=== PATIENT | female | born 2000 | race Caucasian/White ===

== ENCOUNTER 2023-01-09 11:40 | Observation (INO) | payer MEDICAID ==
[~2023-01-09] VITALS: Ht 165.1 cm; Wt 97.5 kg
[2023-01-09] MEDS ORDERED: PNV91TAB8 PO (13:17)
== END 2023-01-09 13:39 | disposition home or self-care (01) ==
LOC: MLD 11:40
PROVIDERS: ADMIT Obstetrics & Gynecology; ATTEND Obstetrics & Gynecology
DX: O36.8130 Decreased fetal movements, third trimester, not applicable or unspecified (principal); Z3A.37 37 weeks gestation of pregnancy
CPT/HCPCS: 76815; G0378; Q0092; 59025; 81000

== ENCOUNTER 2023-01-22 10:15 | Inpatient (IN) | payer MEDICAID ==
[~2023-01-22] VITALS: Ht 170.2 cm; Wt 97.5 kg
[~2023-01-22 10:15] MED LIST: PNV91TAB8 PO
[2023-01-22] MEDS ORDERED: METHYLERGONOVINE 0.2 MG/ML AMP IM PRN (11:00)
--- NOTE | 2023-01-22 11:11 | NUR ---
PATIENT HAS BEEN SCREENED AND CATEGORIZED LOW NUTRITION RISK. PATIENT WILL BE SEEN WITHIN 7 DAYS OF ADMISSION. 01/29/[address]
[2023-01-22] MEDS: LACTATED RINGERS 1,000 ML IV SCH ×3 (11:52→19:48)
[2023-01-22 12:25] LABS: BASOPHILS % (AUTO) 0.2 % (0.0-2.0); EOSINOPHILS # (AUTO) 0.1 K/uL (0-0.4); EOSINOPHILS % (AUTO) 0.7 % (0.0-4.0); HEMOGLOBIN 11.6 g/dL (12.0-16.0); LYMPHOCYTES # (AUTO) 1.6 K/uL (2.5-16.5); LYMPHOCYTES % (AUTO) 16.5 % (20.5-51.1); MEAN CORPUSCULAR HEMOGLOBIN 30 pg (27-31); MEAN CORPUSCULAR HGB CONC 33 g/dL (33-37); MEAN CORPUSCULAR VOLUME 89.4 fL (80-94); MONOCYTES # (AUTO) 0.7 K/uL (0.8-1.0); MONOCYTES % (AUTO) 6.8 % (1.7-9.3); NEUTROPHILS # (AUTO) 7.3 K/uL (1.8-7.7); NEUTROPHILS % (AUTO) 75.8 % (42.2-75.2); PLATELET COUNT (AUTO) 182 K/uL (140-450); RED BLOOD CELL COUNT(AUTO) 3.92 MIL/uL (4.20-5.40); WHITE BLOOD COUNT (AUTO) 9.6 K/uL (4.8-10.8)
[2023-01-22 12:35] LABS: APPEARANCE,URINE CLEAR (CLEAR); BILIRUBIN,URINE NEGATIVE (NEGATIVE); BLOOD, URINE 3+ (NEGATIVE); COLOR,URINE YELLOW (YELLOW); LEUKOCYTE ESTERASE ,URINE TRACE (NEGATIVE); NITRITE, URINE NEGATIVE (NEGATIVE); UGLUCOSE NEGATIVE (NEGATIVE)
[2023-01-22 12:57] LABS: ALBUMIN 2.4 g/dL (3.4-5.0); ANION GAP 12.6 (8-16); CARBON DIOXIDE 23.6 mmol/L (21-32); CREATININE 0.5 mg/dL (0.6-1.3); POTASSIUM 4.2 mmol/L (3.5-5.1); TOTAL BILIRUBIN 0.2 mg/dL (0.0-1.0)
[2023-01-22 13:04] LABS: RBC,URINE 80-100 /HPF (0-5)
[2023-01-22 13:23] LABS: PROTHROMBIN TIME 9.3 secs (10.8-13.4)
[2023-01-22] MEDS ORDERED: OXYTOCIN 20 UNITS in LACTATED RINGERS 1,000 ML IV SCH (13:25)
[2023-01-22] MEDS ORDERED: fentaNYL citrate 0.05 MG/ML VIAL ONE (14:12)
[2023-01-22] MEDS ORDERED: ROPIVACAINE 0.2%/NS PREMIX 200 ML EPI ONE (14:12)
[2023-01-22] MEDS ORDERED: OXYTOCIN 20 UNITS/LR PREMIX 1,000 ML IV ONE (14:30)
[2023-01-23] MEDS: LACTATED RINGERS 1,000 ML IV SCH (03:26)
[2023-01-23] MEDS ORDERED: LIDOCAINE 1% 500 MG/ 50 ML VIAL INJ SCH (04:20)
[2023-01-23] MEDS ORDERED: LIDOCAINE 1% 500 MG/50 ML VIAL ONE (04:23)
[2023-01-23] MEDS ORDERED: METHYLERGONOVINE 0.2 MG TAB PO PRN (05:00)
[2023-01-23] MEDS ORDERED: BENZOCAINE/MENTHOL 20%-0.5% 60 GM CAN TP PRN (05:00)
[2023-01-23] MEDS ORDERED: oxyCODONE/APAP 5/325 MG 1 TAB TAB PO PRN (05:00)
[2023-01-23] MEDS ORDERED: TEMAZEPAM 15 MG CAP PO PRN (05:00)
[2023-01-23] MEDS ORDERED: OXYTOCIN 10 UNITS/ML VIAL IM PRN (05:00)
[2023-01-23] MEDS ORDERED: METHYLERGONOVINE 0.2 MG/ML AMP IM PRN (05:00)
[2023-01-23 05:29] LABS: BASOPHILS # (AUTO) 0.1 K/uL (0.00-0.22); BASOPHILS % (AUTO) 0.4 % (0.0-2.0); EOSINOPHILS % (AUTO) 0.1 % (0.0-4.0); HEMATOCRIT 29.2 % (36-48); HEMOGLOBIN 9.8 g/dL (12.0-16.0); LYMPHOCYTES # (AUTO) 1.6 K/uL (2.5-16.5); LYMPHOCYTES % (AUTO) 11.8 % (20.5-51.1); MEAN CORPUSCULAR HEMOGLOBIN 30 pg (27-31); MEAN CORPUSCULAR HGB CONC 34 g/dL (33-37); MEAN CORPUSCULAR VOLUME 88.9 fL (80-94); MONOCYTES # (AUTO) 0.6 K/uL (0.8-1.0); MONOCYTES % (AUTO) 4.7 % (1.7-9.3); NEUTROPHILS # (AUTO) 11.2 K/uL (1.8-7.7); PLATELET COUNT (AUTO) 165 K/uL (140-450); RED BLOOD CELL COUNT(AUTO) 3.29 MIL/uL (4.20-5.40); RED CELL DISTRIBUTION WIDTH 14.5 % (11.6-13.7); WHITE BLOOD COUNT (AUTO) 13.5 K/uL (4.8-10.8)
--- NOTE | 2023-01-23 05:38 | NUR ---
REPORTED FOR REQUEST OF SERVICE TO L&D FOR TERM BABY PRESENTING WITH GRUNTING. UPON ASSESSMENT THE NEW BORN BABY DID NOT PRESENT WITH SIGNS OF RESPIRATORY DISTRESS, NO LABORED BREATHING, NO RETRACTIONS NOTED, NO NASAL FLARING, SPO2 99% ON ROOM AIR, BS CLEAR BILATERALLY TO AUSCULTATION, ORAL SXN WITH BULB FOR CLEAR SCANT THIN SECRETIONS. RECOMMENDED RN TO ORDER CRX. NO NEED FOR RT INTERVENTION AT THIS TIME. RN WILL CONTINUE TO MONITOR NEW BORN BABY.
[2023-01-23] MEDS ORDERED: NACL 0.9% 1,000 ML IV SCH (07:00)
[2023-01-23] MEDS: IBUPROFEN 800 MG TAB PO PRN ×2 (08:26→18:43)
[2023-01-23] MEDS: oxyCODONE/APAP 5/325 MG 1 TAB TAB PO PRN (20:32)
[2023-01-23] MEDS ORDERED: DOCUSATE SOD/SENNA 50/8.6 MG 1 TAB PO SCH (21:00)
[2023-01-24] MEDS: oxyCODONE/APAP 5/325 MG 1 TAB TAB PO PRN ×3 (02:48→22:38)
[2023-01-24 05:26] LABS: HEMATOCRIT 22.6 % (36-48); HEMOGLOBIN 7.6 g/dL (12.0-16.0)
[2023-01-24] MEDS ORDERED: MEASLES, MUMPS, AND RUBELLA 1 VIAL SQVAC ONE (23:00)
== END 2023-01-25 14:12 | disposition home or self-care (01) | DRG 560 ==
LOC: MLD 10:15 → OBSVTOIN 10:56 → MFCC 01-23 13:32
PROVIDERS: ADMIT Obstetrics & Gynecology; ATTEND Obstetrics & Gynecology
PROC: 10D07Z6 Extraction of Products of Conception, Vacuum, Via Natural or Artificial Opening (ICD-10-PCS; principal; 2023-01-23)
PROC: 0W8NXZZ Division of Female Perineum, External Approach (ICD-10-PCS; 2023-01-23)
PROC: 30233N1 Transfusion of Nonautologous Red Blood Cells into Peripheral Vein, Percutaneous Approach (ICD-10-PCS; 2023-01-23)
DX: O80 Encounter for full-term uncomplicated delivery (principal); Z37.0 Single live birth; R71.0 Precipitous drop in hematocrit; Z20.822 Contact with and (suspected) exposure to COVID-19; Z3A.38 38 weeks gestation of pregnancy
CPT/HCPCS: 36415; 51702; 80053; 81001; 85018; 85025; 85610; 85730; 86592; 86886; 86900; 86901; 86920; 87086; 90707; 90715; J2001; J2210; J2590; J2795; J3010; J7120; P9016